=== PATIENT | female | born 1960 | race Caucasian/White ===

== ENCOUNTER 2023-01-06 21:46 | Emergency (ER) | payer SELFPAY ==
[~2023-01-06] VITALS: Ht 175.2 cm; Wt 72.1 kg
== END 2023-01-06 23:08 | disposition home or self-care (01) ==
LOC: ED 21:46
DX: S96.912A Strain of unspecified muscle and tendon at ankle and foot level, left foot, initial encounter (principal); W10.9XXA Fall (on) (from) unspecified stairs and steps, initial encounter; Y93.89 Activity, other specified; Y92.009 Unspecified place in unspecified non-institutional (private) residence as the place of occurrence of the external cause; Y99.8 Other external cause status